=== PATIENT | female | born 1960 | race Two or more races ===

== ENCOUNTER → 2024-10-17 | Outpatient (CLI) | payer MEDICAID, SELFPAY ==
--- NOTE | 2024-10-17 11:45 | XR_ITS ---
Examination: Screening digital mammography, bilateral Computer aided detection 3-D breast Tomosynthesis, bilateral Date and time of exam: 10/17/2024, 11:37 AM Comparisons: October 2022, April 2023 Indications: Screening Technique: Nonmagnified MLO, CC views of the breasts to been obtained, reconstructed from 3-D Tomosynthesis images. R2 computer aided detection program utilized for evaluation of suspicious masses and/or abnormal calcifications. 3-D Tomosynthesis images obtained. Technologist: Findings: There are scattered areas of fibroglandular density. No evidence of abnormal masses or suspicious calcifications. Impression: BI-RADS category 1: Negative findings (within normal) Recommend 1 year follow-up mammogram
== END | disposition home or self-care (01) ==
LOC: CDIM 11:28
PROVIDERS: PCP Nurse Practitioner Family; Referring Provider Nurse Practitioner Family; Visit Provider Nurse Practitioner Family
DX: Z12.31 Encounter for screening mammogram for malignant neoplasm of breast (principal); R92.313 Mammographic fatty tissue density, bilateral breasts
CPT/HCPCS: 77063; 77067

== ENCOUNTER 2024-11-27 13:55 | Emergency (ER) | payer MEDICAID, SELFPAY ==
[2024-11-27 14:07] VITALS: PULSE 80; O2SAT 99
[2024-11-27 14:08] VITALS: BP 126/73; PULSE 79; RESP 20; TEMP 36.8; O2SAT 100
--- NOTE | 2024-11-27 14:17 | EKG_ITS ---
[facility] Test Date: 2024-11-27 Pat Name: JOSE NARAYAN Department: Room: - Gender: Female Charge Lpn: : 1960 Requested By: Mario Christianson Order Number: [id number] Reading MD: Mario Christianson Measurements Intervals [place] Rate: 79 P: 49 NC: 140 QRS: 0 QRSD: 86 T: 72 QT: 339 QTc: 390 Interpretive Statements SINUS RHYTHM NONSPECIFIC ST & T-WAVE ABNORMALITY No previous ECG available for comparison /store/S0/[id number]/ecg/[id number].pdf
--- NOTE | 2024-11-27 14:18 | EDNOTE_ITS ---
ED General RME/HPI General Chief complaint: Shortness of Breath/Dyspnea Stated complaint: ABDOMINAL PAIN Time Seen by Provider: 11/27/24 14:17 Arrival date/time: 11/27/24 13:55 RME / HPI RME / HPI narrative: DR. CHRISTIANSON MAIN ED EVALUATION: 63 year old female presents to the Emergency Department [facility] with complaint of shortness of breath an 30 minutes prior to arrival. Patient states that it hurts to breath and she is hyperventilating. Associated symptoms include numbness and tingling of bilateral hands and chills. No fevers or chills. No dysuria or other urinary symptoms. No abnormal bleed. Per EMS, patient complained of abdominal pain to them but here no pain. Vitals per EMS, BP of 126/73, HR of 79, O2 sat of 99% on room air. Related Data Allergies Allergy/AdvReac Type Severity Reaction Status Date / Time No Known Allergies Allergy Verified 11/27/24 14:12 Review of Systems Review of Systems Systems Reviewed: All systems reviewed, normal except as documented Narrative Review of Systems: Constitutional: POSITIVES: chills DENIES: fevers; Eyes: DENIES: loss of vision; Head/Ear/Nose: DENIES: loss of hearing. Throat: DENIES: dysphagia. Cardiovascular: DENIES: chest pain, dyspnea, or syncope. Respiratory: POSITIVES: shortness of breath; Gastrointestinal: DENIES: rectal bleeding or melena. Genitourinary: DENIES: dysuria (painful or difficult urination); Musculoskeletal: DENIES: arthralgia (pain in a joint); Skin: DENIES: rash; Neurological: POSITIVES: numbness and tingling of bilateral hands DENIES: loss of function or movement; Psychiatric: DENIES: recent major life stressor, emotional problem, illicit drug use or abuse; Endocrinology: DENIES: weight change,; Hematologic/Lymphatic: DENIES: abnormal bruising. Allergic/Immunologic: DENIES: urticaria (hives). Past Medical History Social History SMOKING STATUS: Never smoker SUBSTANCE USE: does not use ALCOHOL: Never ED Exam Narrative Physical exam: Physical Exam: General: The vital signs were reviewed. Patient has normal O2 sat and vital signs in the ambulance bay she is quite anxious she is complaining bilateral numbness and tingling hands and feet and she appears to be hyperventilating. Her lungs are totally clear there is no wheezes or rales and her belly is soft and benign the patient is non-toxic, in no apparent distress and appears healthy with a patent airway, no respiratory distress and has no apparent circulatory problems. Head & Scalp: Normocephalic, atraumatic. Face: Appears normal and is without lesions, deformity. Ears: Left external pinna appears normal. Right external pinna appears normal. Eyes: The sclera is anicteric. No obvious photophobia. The Left and Right Orbit/Lid/Conjunctiva appears normal without swelling, discoloration or injection. Nose: The nose is without deformity, discharge or tenderness; Throat: Appears normal. The mucous membranes are pink and moist without exudates, redness or mass seen. The tongue appears normal. Neck: The neck is supple and no apparent mass or adenopathy. Chest: Complaining of chest pain with breathing yet is able to take deep breaths the chest wall is normal in size and symmetry and has no chest wall tenderness or crepitus. The patient displays normal ventilator effort without retractions, accessory muscle use and has adequate air movement bilaterally with no wheezes and no rales. Cardiovascular: Regular rate and rhythm; No murmurs, rubs, or gallops; Gastrointestinal: The abdomen appears normal. Totally soft and benign No obvious hernias or mass. The abdomen is soft and benign, non-distended, with no pain, no guarding and no rebound tenderness. Bowel sounds are present and normal sounding. No CVA tenderness. Genitourinary: Back/Spine: Normal inspection Extremities/Musculoskeletal/lymphatic: The bilateral upper and lower extremities are warm. There is no evidence of arterial insufficiency. There is no evidence of venous insufficiency/edema. The patient spontaneously moves bilateral upper and lower extremities with no pain and no limitation of movement. There is no apparent, injury or trauma. Skin: The skin is warm, dry and intact. No rashes. No petechia. No purpura. No abnormal bruising. The color is appropriate with no cyanosis. Mental status/Psychiatric: Mental status is appropriate for age. The patient has no apparent delusions, visual hallucinations, no apparent audible hallucinations. The patient has no apparent suicidal thoughts/ideation and no apparent homicidal thoughts/ideation. Neurological: The patient is awake, alert, interactive, cordial, cooperative and is o riented to name and situation. The patient follows commands and answers historical question with no impairment. There is no visual disturbance apparent. The pupils are equal and reactive bilaterally with normal eye movements and no diplopia The bilateral upper and lower extremities have normal strength, normal range of motion and normal functioning. The gait, station and balance appear to be baseline with no acute change Course Quality Measures none Orders Category Date Time Status CT Screening NOW Care 11/27/24 17:57 Active EKG (ED ONLY) *Do not use* NOW Care 11/27/24 14:17 Completed IV [Insert IV] NOW Care 11/27/24 15:[address] angio chest Stat Exams 11/27/24 17:57 Ordered EKG (ED Only) Stat Exams 11/27/24 14:17 Draft XR chest 1V portable Stat Exams 11/27/24 14:17 Completed B-Type Natriuretic Peptide Stat Lab 11/27/24 15:18 Completed Blood Culture (Lab) Stat Lab 11/27/24 15:15 Received CBC Stat Lab 11/27/24 15:18 Completed Comprehensive Metabolic Panel Stat Lab 11/27/24 15:18 Completed D-Dimer Stat Lab 11/27/24 15:18 Completed Drug Screen,Urine Stat Lab 11/27/24 17:30 Completed Lactate (Lactic Acid) Stat Lab 11/27/24 15:18 Results Lactate (Lactic Acid) Stat Lab 11/27/24 19:30 Ordered Lipase Stat Lab 11/27/24 15:18 Completed Magnesium Stat Lab 11/27/24 15:18 Completed Troponin I Stat Lab 11/27/24 15:18 Completed Urinalysis Stat Lab 11/27/24 17:30 Completed Urinalysis, C/S if Indicated Stat Lab 11/27/24 17:30 Completed Venous Blood Gas Stat Lab 11/27/24 15:18 Completed Sodium Chloride 0.9% 1000 ml [Ns] 1,000 ml Med 11/27/24 17:57 Active IV 150 mls/hr Sodium Chloride 0.9% 1000 ml [Ns] 1,090 ml Med 11/27/24 17:57 Active IV 1,090 mls/hr Vital Signs Vital signs: Vital Signs Temperature 98.3 F 11/27/24 14:08 Pulse Rate 79 11/27/24 14:08 Respiratory Rate 20 11/27/24 14:08 Blood Pressure 126/73 11/27/24 14:08 Pulse Oximetry (%) 100 11/27/24 14:08 Oxygen Delivery Method Room Air 11/27/24 14:08 Discharge Plan Prescriptions/Referrals Referrals: Darnell Pate MD [Primary Care Provider] - In 1 week Problem List Clinical Impression: Pleuritic chest pain, Acute respiratory alkalosis, Elevated lactic acid level Patient/Caregiver Discharge Instructions Print Language: Chinese MDM Narrative [facility] hospital course: I, Claritza Motley, am scribing for and in the presence of Dr. Christianson. Patient appears to be obviously anxious and hyperventilating in the ambulance bay. Complaining of pleuritic chest pain but yet taking deep breaths without any hesitancy. Medical workup was initiated to evaluate the pleuritic chest pain reveals a white count of 10.1 hemoglobin of 14.5 D-dimer is elevated therefore cannot exclude pulmonary embolus. BUN 11 creatinine 0.8 glucose 176 lactic acid is elevated 3.6 troponin was negative BNP was negative urinalysis came back with specific gravity of 1044 which is quite concentrated again suggesting dehydration urine drug screen was negative Chest x-ray had no acute no effusion no infiltrate. Reevaluation of patient shows her to be better but because her urine is concentrated lactic acid is elevated and she is having pleuritic chest pain with a nonnegative D-dimer a CTA is ordered and pending as of 1815 hrs. in the care goes to Dr. Reed to follow this up. Clinically she now has a friend present in the room and she admits the patient is quite anxious and my suspicion is that 90% of this visit is anxiety field but we need to rule out a PE as mentioned above Dr. Dr. Funes is aware and will follow-up on the lactic acid fluid hydration and the CTA. Clinical Information Provided by patient and EMS Medical Records Reviewed EMS Meds/Rx Considered, not Ordered None Labs/Rad/Tests considered, not Ordered None Chronic Illness/Social Conditions which may negatively complicate care or outcome(s)-explain: None or not applicable EKG Interpretation EKG #1: Date/time of EK11/27/24 2:42 pm EKG interpretation: Interpreted by me: sinus rhythm, rate 79, no STEMI Lab Interpretation Labs: see narrative above Imaging Imaging interpretation: see narrative above Radiology reports / interpretation(s): Procedure(s): XR chest 1V portable Accession Number(s): [id number] cc: Darnell Pate MD; Mario Christianson MD; Frankie Burton MD~ Indication: AP chest single view Technique one AP portable upright chest single view Date and time: November 27, 2024 1519 hours INDICATIONS: Chest pain weakness today FINDINGS: Normal heart size No pneumonia or pulmonary edema Moderate osteopenia IMPRESSION: No active disease Dictated By: Frankie Burton MD Medication Administration(s) Medication Administration History Sodium Chloride (Ns) 1,090 mls @ 1,090 mls/hr 20 ml/kg infuse over 60 min (1090 ml) IV .Q1H ONE Stop: 11/27/24 18:56 Last Admin: 11/27/24 18:09 Dose: 1,090 mls/hr Documented By: NEIDA Sodium Chloride (Ns) 1,000 mls @ 150 mls/hr IV .[id number] ONE Stop: 11/28/24 00:36 Diagnosis Differential diagnosis: anxiety, TIA, dehydration
[2024-11-27 15:32] LABS: Lactate (Lactic Acid) 3.6 mMol/L (0.4-2.0)
[2024-11-27 15:33] LABS: Base Excess, Venous 2 (-3-3); O2 Saturation, Venous 88 % (96-97); PCO2, Venous 25 mmHg (36-56); PO2, Venous 59 mmHg (15-58); pH, Venous 7.56 (7.33-7.66)
[2024-11-27 15:34] LABS: Basophils % (Auto) 0 % (0-2.5); Eosinophils % (Auto) 0 % (0-10); Hematocrit 41.1 % (36.0-46.0); Hemoglobin 14.5 g/dL (12.0-16.0); Immature Granulocytes % (Auto) 0 % (0-0); Immature Granulocytes Auto 0.03 Thou/mm3 (0.00-0.00); Lymphocytes # (Auto) 1.5 Thou/mm3 (1.0-4.8); Lymphocytes % (Auto) 15 % (10-50); Mean Corpuscular HGB Conc 35.3 g/dl (31.0-37.0); Mean Corpuscular Hemoglobin 29.6 pg (25.0-35.0); Mean Corpuscular Volume 84 fL (80-100); Monocytes # (Auto) 0.5 Thou/mm3 (0.0-0.8); Monocytes % (Auto) 5 % (0-12); Neutrophils % (Auto) 79 % (37-80); Nucleated Red Blood Cell % 0 /100 WBC (0); Platelet Count 237 Thou/mm3 (140-440); RDW Standard Deviation 39.3 fL (36.4-46.3); White Blood Count 10.1 Thou/mm3 (3.6-11.0)
[2024-11-27 15:47] LABS: D-Dimer > 3820 ng/mL (<600)
[2024-11-27 15:49] LABS: B-Type Natriuretic Peptide < 20 pg/mL (0-100)
[2024-11-27 15:50] VITALS: BMI 22.6
[2024-11-27 15:51] LABS: Alanine Aminotransferase 30 U/L (10-49); Albumin, Serum 4.7 gm/dL (3.4-4.8); Albumin/Globulin Ratio 1.7 (1.2-2.2); Alkaline Phosphatase 115 U/L (46-116); Anion Gap 11 (7-16); Aspartate Amino Transferase 30 U/L (0-34); BUN/Creatinine Ratio 14 Ratio (12-20); Bilirubin,Total 1.1 mg/dL (0.3-1.2); Blood Urea Nitrogen 11 mg/dL (9-23); Calcium 9.6 mg/dL (8.3-10.6); Calcium (Corrected) 9.6 mg/dL (8.5-10.1); Carbon Dioxide 22.6 mMol/L (20.0-31.0); Chloride 104 mMol/L (98-107); Creatinine (Component) 0.8 mg/dL (0.6-1.3); Globulin 2.8 gm/dL (2.3-3.5); Glucose 176 mg/dL (74-106); Lipase 44 U/L (12-53); Osmolality,Calculated 279 (275-295); Potassium 4.2 mMol/L (3.4-5.1); Sodium 138 mMol/L (136-145); Total Protein 7.5 gm/dL (5.7-8.2); Troponin I < 0.002 ng/mL (0.0-0.045); eGFR > 60 See Note
[2024-11-27 16:17] VITALS: BP 110/64; PULSE 82; RESP 18; TEMP 36.4; O2SAT 96
[2024-11-27 17:37] LABS: Collection Type, Urine Clean Catch
[2024-11-27 17:47] LABS: Bacteria,Urine Rare; Bilirubin,Urine Negative (Negative); Blood,Urine Negative (Negative); Clarity,Urine Clear (Clear/Hazy); Color,Urine Yellow (Lt Yel-Yel); Culture Indicated,Urine Not Indicated; Glucose, Urine 4+ (Negative); Ketones,Urine 2+ (Negative); Leukocyte Esterase,Urine Negative (Negative); Nitrite,Urine Negative (Negative); PH,Urine 5.5 (5.0-7.0); Protein,Urine Negative (Neg - Trace); RBC,Urine 3 /hpf (0-3); Specific Gravity,Urine 1.044 (1.001-1.035); Squamous Epithelial Cell,Urine 2 /hpf (0-5); Urobilinogen,Urine Negative mg/dL (0.0-1.0); WBC,Urine 6 /hpf (0-5)
--- NOTE | 2024-11-27 17:57 | XR_ITS ---
Examination: CTA chest with intravenous contrast 2-D reconstructions 3-D reconstructions, vascular Date and time of exam: [facility] 29/07/2024 1827 hours INDICATIONS: Pleuritic chest pain shortness of breath today CTDI: vol (mGy) 8.74 DLP: (mGycm) 281 Technique: Multiple axial sections of the thorax have been obtained. 3 mm slice thickness, from below the hemidiaphragms to above the apices of the lungs. Mediastinal and lung density settings have been obtained. 2-D sagittal and coronal reconstructions. 3-D angiographic renderings, 3-D volume renderings, 3D post processing, vascular maximum intensity projections obtained. Contrast administered is 100 cc Isovue 370. Low dose protocols were performed. One or more of the following dose reduction techniques were used; automated exposure control, adjustment of the mA and/or KV according to patient size, use of iterative reconstruction technique. Findings: No thoracic aortic aneurysm dilatation or dissection No pulmonary artery emboli No paratracheal tracheobronchial or bronchopulmonary adenopathy Soft opacities right lung base consistent with early pneumonia Liver is irregular in contour with diffuse fatty infiltration Liver is enlarged and completely visualized Lower esophageal wall is thickened No pancreatic mass Kidneys partially visualized and no hydronephrosis Osseous structures are intact IMPRESSION: Negative for pulmonary artery emboli Early pneumonia right base Lower esophageal wall is thickened, consider reflux esophagitis Primary hepatocellular disease
[2024-11-27 18:00] LABS: Amphetamine/Methamp Scrn,U Negative (Negative); Barbiturate Screen,Urine Negative (Negative); Benzodiazepines Screen,Urine Negative (Negative); Benzoylecgonine Screen, Ur Negative (Negative); Fentanyl Screen,Urine Negative (Negative); Opiate Screen,Urine Negative (Negative); THC Screen,Urine Negative (Negative)
[2024-11-27] MEDS: SODIUM CHLORIDE 0.9% 1090 ML IV (18:09)
[2024-11-27 18:19] VITALS: BP 109/64; PULSE 81; RESP 18; TEMP 37.7; O2SAT 96
[2024-11-27 18:29] LABS: Reflex Lactate? Y
--- NOTE | 2024-11-27 18:31 | PD.EDADDENDU ---
Emergency Room Addendum <Leatha Roy - Last Filed: 11/27/24 18:32> Addendum Narrative: 1800: Care assumed from Dr. Christianson (emergency physician). Past medical, surgical, social and family history reviewed. Vitals and home medications reviewed. Results and treatment plan discussed. I will assume the care of the patient at this time and will follow the patient, pending <Lora Reed MD - Last Filed: 11/27/24 20:54> Addendum Narrative: 1800: Care assumed from Dr. Christianson (emergency physician). Past medical, surgical, social and family history reviewed. Vitals and home medications reviewed. Results and treatment plan discussed. I will assume the care of the patient at this time and will follow the patient. PE: GEN. APPEARANCE: The patient is alert awake oriented X-3 in no distress, lying down comfortably, does not look ill/toxic. Patient has good eye contact. Patient is cooperative. HEENT: Normocephalic, atraumatic. Pupils are equal and reactive. Oral mucosa is moist. Patent Nares NECK: Supple, nontender, CHEST: Symmetrical, atraumatic, and with equal expansion , Nontender on palpation no deformity and no crepitus. CARDIOVASCULAR: Heart regular rhythm no murmur or gallop rub or extra beats. LUNGS: Equal breath sounds bilaterally. ABDOMEN: Soft, flat, nontender to palpation, no guarding or rebound tenderness. There are no abnormal masses palpated. Active and normal bowel sounds. Ct Chest Angio IMPRESSION: Negative for pulmonary artery emboli Early pneumonia right base Lower esophageal wall is thickened, consider reflux esophagitis Primary hepatocellular disease CXR FINDINGS: Normal heart size No pneumonia or pulmonary edema Moderate osteopenia IMPRESSION: No active disease Shared decision-making has been discussed and at this time the patient request to be going home. Her lactic acid is normal on repeat and otherwise her vitals remains stable. Return precautions are given and understood Patient appears normal no acute distress. Will treat for pneumonia. Ceftriaxone and azithromycin was given.
[2024-11-27] MEDS: SODIUM CHLORIDE 0.9% 1000 ML 1,000 ML 150 ML IV (19:22)
[2024-11-27] MEDS: AZITHROMYCIN INJ 500 MG in SODIUM CHLORIDE 0.9% 250 ML 250 ML 250 MG IV (19:50)
[2024-11-27] MEDS: cefTRIAXone/D5w 1gm IV premix 1 GM/50 ML BAG IV (19:51)
[2024-11-27 19:52] VITALS: BP 116/52; PULSE 79; RESP 18; TEMP 37.1; O2SAT 98
[2024-11-27 19:52] LABS: Lactate (Lactic Acid) 1.8 mMol/L (0.4-2.0)
[2024-11-27 21:47] VITALS: BP 131/74; PULSE 86; RESP 16; TEMP 37.2; O2SAT 97
== END 2024-11-27 21:55 | disposition home or self-care (01) ==
PROVIDERS: Emergency Medicine; Emergency Provider Emergency Medicine; PCP Family Medicine
DX: R07.81 Pleurodynia (principal); R53.1 Weakness; R06.4 Hyperventilation
CPT/HCPCS: 36415; 71045; 71275; 80053; 80307; 81001; 82803; 83605; 83690; 83735; 83880; 84484; 85025; 85379; 87040; 93005; 96361; 96365; 96366; 96368; 99285; A4649; J0456; J0696; J7030; J7050; Q9967